=== PATIENT | female | born 1950 | race Caucasian/White ===

== ENCOUNTER 2017-02-11 09:51 | Outpatient (CLI) | payer MEDICARE, BC ==
--- NOTE | 2017-02-11 10:17 | XRAY Report ---
THREE VIEW LEFT ANKLE: 02/11/2017 CLINICAL INDICATION: Edema. FINDINGS: AP, lateral, and oblique views of the left ankle demonstrate no evidence of acute fracture or dislocation. Lateral soft tissue swelling is noted. No effusion is seen. IMPRESSION: LATERAL SOFT TISSUE SWELLING, BUT NO EVIDENCE OF FRACTURE. JOB #: [id number] EXT JOB #:[id number]
== END 2017-02-11 09:52 | disposition home or self-care (01) ==
LOC: DI 09:51
PROVIDERS: ATTEND Family Medicine
DX: M25.572 Pain in left ankle and joints of left foot (principal); R60.0 Localized edema

== ENCOUNTER 2017-04-22 22:59 | Emergency (ER) | payer MEDICARE, BC ==
[2017-04-22 23:24] LABS: BASOPHILS % (AUTO) 0.7 %; EOSINOPHILS # (AUTO) 0.1 10^3/uL (0.0-0.7); EOSINOPHILS % (AUTO) 2.1 %; HCT - HEMATOCRIT 38.4 % (37.0-47.0); HGB - HEMOGLOBIN 13.2 g/dL (12.0-16.0); LYMPHOCYTES # (AUTO) 1.8 10^3/uL (1.5-3.5); LYMPHOCYTES % (AUTO) 33.6 %; MEAN CORPUSCULAR HEMOGLOBIN 31.1 pg (27.0-31.0); MEAN CORPUSCULAR HGB CONC 34.3 g/dL (32.0-36.0); MEAN CORPUSCULAR VOLUME 90.5 fL (81.0-99.0); MEAN PLATELET VOLUME 8.3 fL (7.9-10.8); MONOCYTES # (AUTO) 0.5 10^3/uL (0.0-1.0); MONOCYTES % (AUTO) 8.5 %; NEUTROPHILS # (AUTO) 2.9 10^3/uL (1.5-6.6); NEUTROPHILS % (AUTO) 55.1 %; RED BLOOD COUNT 4.24 10^6/uL (4.20-5.40); RED CELL DISTRIBUTION WIDTH 13.3 % (12.0-15.0); UNCORRECTED WHITE BLOOD COUNT 5.3 x10^3/uL; WHITE BLOOD COUNT 5.3 x10^3/uL (4.8-10.8)
[2017-04-22 23:37] LABS: ALBUMIN/GLOBULIN RATIO 1.7 (1.0-2.2); BILIRUBIN,TOTAL 0.6 mg/dL (0.2-1.0); CALCIUM 9.6 mg/dL (8.5-10.3); CREATININE 0.9 mg/dL (0.4-1.0); TOTAL PROTEIN 7.3 g/dL (6.7-8.2)
--- NOTE | 2017-04-22 23:44 | ED Physician Documentation ---
PD HPI ABD PAIN - Stated complaint Stated Complaint: DIVERTICULTIS SYMPTONS - Chief complaint Chief Complaint: Abd Pain - History obtained from History obtained from: Patient, Family - History of Present Illness Timing - onset: Today Timing - details: Now resolved Associated symptoms: No: Fever, Nausea, Vomiting, Hematemesis, Diarrhea Recently seen: Clinic - Additional information Additional information: Patient is a 66 year old female with a history of diverticulitis who is coming to the emergency department for a resolution of her symptoms. Patient states that her doctor told her to come to the emergency department right away if the pain went away entirely. Patient states that she was able to eat soup today and her pain is gone so she came to the emergency department. Review of Systems Constitutional: denies: Fever, Chills Eyes: reports: Reviewed and negative Nose: denies: Rhinorrhea / runny nose, Congestion Throat: reports: Reviewed and negative Cardiac: denies: Chest pain / pressure, Palpitations Respiratory: denies: Cough GI: reports: Diarrhea. 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, Hysterectomy - Present Medications Home Medications: Ambulatory Orders Medication Instructions Recorded Confirmed Metoprolol Tartrate 2 tab PO DAILY 04/28/14 08/19/15 Rosuvastatin Calcium [Crestor] 0.5 tab PO DAILY 04/28/14 08/19/15 Valsartan [Diovan] 160 mg PO BID 04/28/14 08/19/15 Ciprofloxacin HCl [Cipro] 500 mg PO BID 04/22/17 04/22/17 Metronidazole [Flagyl] 500 mg PO BID 04/22/17 04/22/17 - Allergies Allergies/Adverse Reactions: Allergies Allergy/AdvReac Type Severity Reaction Status Date / Time codeine Allergy Nausea Verified 08/19/15 12:37 oxycodone [Oxycodone] Allergy Hives Verified 08/19/15 12:37 oxycodone HCl * Allergy Unknown Verified 08/19/15 12:37 [From OxyContin] Penicillins Allergy Unknown Verified 08/19/15 12:37 - Social History Does the pt smoke?: No Smoking Status: Never smoker Does the pt drink ETOH?: Yes Does the pt have substance abuse?: No - Immunizations Immunizations are current?: Yes PD ED PE NORMAL - Vitals Vital signs reviewed: Yes - General General: Alert and oriented X 3, No acute distress - HEENT HEENT: Atraumatic, PERRL, Moist mucous membranes - Neck Neck: No JVD - Cardiac Cardiac: RRR, No murmur - Respiratory Respiratory: No respiratory distress - Abdomen Abdomen: Normal bowel sounds, Soft, Non tender, Non distended - Derm Derm: Normal color, Warm and dry, No rash - Extremities Extremities: No deformity, No tenderness to palpate, No edema - Neuro Neuro: Alert and oriented X 3, No motor deficit, No sensory deficit, Normal speech - Psych Psych: Normal mood, Normal affect Results - Vitals Vitals: Vital Signs - 24 hr 04/22/17 04/22/17 23:04 23:48 Temperature 36.6 C Heart Rate 68 53 L Respiratory 16 16 Rate Blood Pressure 161/82 H 124/81 H O2 Saturation 96 98 Oxygen O2 Source Room air - Labs Labs: Laboratory Tests 04/22/17 04/22/17 04/22/17 23:17 23:17 23:17 WBC 5.3 RBC 4.24 Hgb 13.2 Hct 38.4 MCV 90.5 MCH 31.1 H MCHC 34.3 RDW 13.3 Plt Count 170 MPV 8.3 Neut # 2.9 Lymph # 1.8 Hemphill # 0.5 Eos # 0.1 Baso # 0.0 Absolute Nucleated RBC 0.00 Nucleated RBCs 0.0 Sodium 138 Potassium 3.0 L Chloride 103 Carbon Dioxide 25 Anion Gap 10.0 BUN 11 Creatinine 0.9 Estimated GFR (MDRD) 63 L Glucose 96 Lactic Acid 1.0 Calcium 9.6 Total Bilirubin 0.6 AST 26 ALT 19 Alkaline Phosphatase 40 L Total Protein 7.3 Albumin 4.6 Globulin 2.7 Albumin/Globulin Ratio 1.7 Lipase 28 PD MEDICAL DECISION MAKING - ED course Complexity details: reviewed old records, reviewed results, re-evaluated patient , considered differential, d/w patient, d/w family ED course: Patient was seen and examined at bedside. Patient was well appearing and in no distress. Patient's labs were within normal limits. Patient required no further work up and was stable for discharge with outpatient follow up. Departure - Departure Disposition: 01 Home, Self Care Clinical Impression: Diverticulitis of gastrointestinal tract Condition: Good Instructions: ED Diverticulitis Follow-Up: Gio Velazquez MD [Primary Care Provider] - As Needed Comments: Your diagnostics today were within normal limits. there was no sign of infection. your potassium was a little low so you will need to increase your potassium intake (bananas, kale, green leafy vegetables). You should finish you course of antibiotics and follow up wiht your doctor as needed. You may return to the emergency department at any time for new, worsening or uncontrollable symptoms. Discharge Date/Time: 04/22/17 23:51
[2017-04-22 23:49] VITALS: BP 124/81
== END 2017-04-22 23:51 | disposition home or self-care (01) ==
LOC: ED 22:59
DX: K57.92 Diverticulitis of intestine, part unspecified, without perforation or abscess without bleeding (principal); E87.6 Hypokalemia; I10 Essential (primary) hypertension
CPT/HCPCS: 36415; 80053; 83605; 83690; 85025; 99283

== ENCOUNTER 2017-05-19 12:44 | Outpatient (CLI) | payer MEDICARE, BC ==
[2017-05-19 13:27] LABS: BASOPHILS % (AUTO) 0.8 %; EOSINOPHILS # (AUTO) 0.1 10^3/uL (0.0-0.7); EOSINOPHILS % (AUTO) 3.2 %; HCT - HEMATOCRIT 39.4 % (37.0-47.0); HGB - HEMOGLOBIN 13.5 g/dL (12.0-16.0); LYMPHOCYTES # (AUTO) 1.5 10^3/uL (1.5-3.5); MEAN CORPUSCULAR HEMOGLOBIN 30.8 pg (27.0-31.0); MEAN CORPUSCULAR HGB CONC 34.2 g/dL (32.0-36.0); MEAN PLATELET VOLUME 8.7 fL (7.9-10.8); MONOCYTES # (AUTO) 0.3 10^3/uL (0.0-1.0); MONOCYTES % (AUTO) 7.5 %; NEUTROPHILS # (AUTO) 2.1 10^3/uL (1.5-6.6); NEUTROPHILS % (AUTO) 52.5 %; NUCLEATED RED BLOOD CELLS AUTO 0.1 /100WBC; RED BLOOD COUNT 4.38 10^6/uL (4.20-5.40); RED CELL DISTRIBUTION WIDTH 12.8 % (12.0-15.0); UNCORRECTED WHITE BLOOD COUNT 4.1 x10^3/uL; WHITE BLOOD COUNT 4.1 x10^3/uL (4.8-10.8)
[2017-05-19 13:48] LABS: ALBUMIN/GLOBULIN RATIO 1.7 (1.0-2.2); BILIRUBIN,TOTAL 0.9 mg/dL (0.2-1.0); CALCIUM 9.4 mg/dL (8.5-10.3); CREATININE 0.7 mg/dL (0.4-1.0); POTASSIUM 3.7 mmol/L (3.5-5.0); TOTAL PROTEIN 6.8 g/dL (6.7-8.2)
== END 2017-05-19 12:45 | disposition home or self-care (01) ==
LOC: LAB 12:44
PROVIDERS: ATTEND Podiatrist Foot & Ankle Surgery
DX: Z01.812 Encounter for preprocedural laboratory examination (principal); Z01.810 Encounter for preprocedural cardiovascular examination
CPT/HCPCS: 36415; 80053; 85025; 93005

== ENCOUNTER 2018-08-01 11:35 | Emergency (ER) | payer MEDICARE, BC ==
[2018-08-01 11:50] VITALS: BP 150/90
--- NOTE | 2018-08-01 12:54 | ED Physician Documentation ---
PD HPI URI - Stated complaint Stated Complaint: COLD,HEAD ACHE - Chief complaint Chief Complaint: Heent - History obtained from History obtained from: Patient - History of Present Illness Timing - onset: How many weeks ago (1) Timing duration: Weeks (1) Timing details: Gradual onset, Still present Associated symptoms: Fever, Nasal congestion, Sinus pain (for 1-2 days), Sore throat, NVD. No: Ear pain, Dry cough, Chest pain, Dyspnea Contributing factors: No: Sick contact, Immunocompromised Worsened by: Activity Recently seen: Not recently seen Review of Systems Constitutional: reports: Fever, Chills, Myalgias Nose: reports: Congestion, Sinus pressure / pain. 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, Hysterectomy - Present Medications Home Medications: Ambulatory Orders Medication Instructions Recorded Confirmed Metoprolol Tartrate 2 tab PO DAILY 04/28/14 08/19/15 Rosuvastatin Calcium [Crestor] 0.5 tab PO DAILY 04/28/14 08/19/15 Valsartan [Diovan] 160 mg PO BID 04/28/14 08/19/15 Ciprofloxacin HCl [Cipro] 500 mg PO BID 04/22/17 04/22/17 Metronidazole [Flagyl] 500 mg PO BID 04/22/17 04/22/17 Benzonatate [Tessalon Perle] 100 - 200 mg PO TID PRN #30 capsule 08/01/18 Cetirizine [ZyrTEC] 10 mg PO DAILY #15 tablet 08/01/18 Dexamethasone [Decadron] 4 mg PO DAILY #5 tablet 08/01/18 Doxycycline Hyclate 100 mg PO BID #15 capsule 08/01/18 Mupirocin 1 applic TP TID #15 g 08/01/18 - Allergies Allergies/Adverse Reactions: Allergies Allergy/AdvReac Type Severity Reaction Status Date / Time codeine Allergy Nausea Verified 08/19/15 12:37 oxycodone [Oxycodone] Allergy Hives Verified 08/19/15 12:37 oxycodone HCl * Allergy Unknown Verified 08/19/15 12:37 [From OxyContin] Penicillins Allergy Unknown Verified 08/19/15 12:37 - Social History Does the pt smoke?: No Smoking Status: Never smoker Does the pt drink ETOH?: Yes Does the pt have substance abuse?: No - Immunizations Immunizations are current?: Yes PD ED PE NORMAL - Vitals Vital signs reviewed: Yes - General General: Alert and oriented X 3, Well developed/nourished - HEENT HEENT: Ears normal, Pharynx benign, Other (frontal sinus tenderness to percussion) - Neck Neck: Supple, no meningeal sign, No adenopathy - Cardiac Cardiac: RRR, No murmur - Respiratory Respiratory: Clear bilaterally - Abdomen Abdomen: Soft, Non tender - Back Back: No CVA TTP - Derm Derm: Normal color, Warm and dry - Neuro Neuro: Alert and oriented X 3, No motor deficit, Normal speech Results - Vitals Vitals: Vital Signs - 24 hr 08/01/18 11:48 Temperature 36.6 C Heart Rate 73 Respiratory 16 Rate Blood Pressure 150/90 H O2 Saturation 99 Oxygen O2 Source Room air PD MEDICAL DECISION MAKING - ED course Complexity details: considered differential (sounds like URI with likely some sinusitis secondarily. ), d/w patient Departure - Departure Disposition: Home, Self Care Clinical Impression: Upper respiratory infection Qualifiers: URI type: unspecified URI Qualified Code(s): J06.9 - Acute upper respiratory infection, unspecified Sinusitis, acute Qualifiers: Sinusitis location: pansinusitis Recurrence: non-recurrent Qualified Code(s): J01.40 - Acute pansinusitis, unspecified Condition: Stable Record reviewed to determine appropriate education?: Yes Instructions: ED Sinusitis Abx Tx Follow-Up: Gio Velazquez MD [Primary Care Provider] - Prescriptions: Benzonatate [Tessalon Perle] 100 - 200 mg PO TID PRN #30 capsule PRN Reason: Cough Cetirizine [ZyrTEC] 10 mg PO DAILY #15 tablet Dexamethasone [Decadron] 4 mg PO DAILY #5 tablet Doxycycline Hyclate 100 mg PO BID #15 capsule Mupirocin 1 applic TP TID #15 g Comments: Drink lots of fluids. You can try some saline nose spray to moisturize the nasal passages. Use mupirocin antibiotic ointment into the nasal passage and the sores around the opening 2-3 times a day for concern of bacterial infection at those spots. Doxycycline oral antibiotic for the sinuses and nose as well. Decadron steroid anti-inflammatory to help reduce inflammation throughout and that should help with symptoms. Cetirizine antihistamine daily for the next week or 2. Drink lots of fluids and use Tylenol if needed for pains. Use Tessalon if needed for cough. Discharge Date/Time: 08/01/18 13:59
== END 2018-08-01 13:59 | disposition home or self-care (01) ==
LOC: ED 11:35
DX: J01.40 Acute pansinusitis, unspecified (principal); J06.9 Acute upper respiratory infection, unspecified; J45.909 Unspecified asthma, uncomplicated; I10 Essential (primary) hypertension
CPT/HCPCS: 99283

== ENCOUNTER 2020-03-07 14:12 | Outpatient (CLI) | payer MEDICARE, BC ==
--- NOTE | 2020-03-07 16:33 | XRAY Report ---
PROCEDURE: Lumbar Spine 2 View INDICATIONS: LOW BACK PAIN TECHNIQUE: 2 views of the lumbar spine were acquired. COMPARISON: None. FINDINGS: Bones: There are 5 nonrib-bearing lumbar-type vertebral bodies. Exaggerated lumbar lordosis. Otherwis e normal height and alignment. Disc height loss from L3 L4-L5 S1 with associated degenerative endplat e changes and facet hypertrophy. Soft tissues: Overlying bowel gas pattern is normal. No suspicious soft tissue calcifications. Cho lecystectomy clips. IMPRESSION: Degenerative changes in the lower lumbar spine. Reviewed by: Tomasz Bello MD on 03/07/2020 4:32 PM PDT Approved by: Tomasz Bello MD on 03/07/2020 4:32 PM PDT Station ID: [id number]
== END 2020-03-07 14:13 | disposition home or self-care (01) ==
LOC: DI.N 14:12 → DI.S 14:13
PROVIDERS: ATTEND Nurse Practitioner Family
DX: M47.816 Spondylosis without myelopathy or radiculopathy, lumbar region (principal)
CPT/HCPCS: 72100

== ENCOUNTER 2021-10-28 13:47 | Emergency (ER) | payer MEDICARE, BC ==
[2021-10-28 14:11] VITALS: BP 152/82
--- NOTE | 2021-10-28 14:33 | ED Physician Documentation ---
PD HPI Fall - Stated complaint Stated Complaint: RT SHOULDER PX - Chief complaint Chief Complaint: Trauma Ext - History obtained from History obtained from: Patient - History of Present Illness Mechanism of injury: Other (pulled over by dog) Fall distance: Standing position Where injury occurred: Home Timing - onset: Today Injury(ies) location: Right Upper Extremity, Other (right pelvis) Quality of pain: Pain Associated symptoms: No: LOC, AMS, Amnesia, Neck pain, Weakness, Paresthesias, Dyspnea, Nausea / vomiting, Hematemesis, Abdominal distension Symptoms improve with: Rest, Position Worsens with: Movement, Palpation Contributing factors: No: Anticoagulated Similar symptoms before: Has not had sx before Recently seen: Not recently seen - Additional information Additional information: 71-year-old female with a history of hypertension was sitting with her taking the dog for a walk with the dog bolted after a squirrel and pulled her straight onto her right shoulder. She fell onto her right hip as well she is complaining of pain and swelling to the right shoulder with reduced range of motion and a pain to her pelvis medially. She states that this is on the right side and has been increasing in pain as she sits here in the emergency department. Review of Systems Constitutional: denies: Fever Respiratory: denies: Cough GI: denies: Vomiting, Diarrhea Skin: denies: Rash Musculoskeletal: reports: Extremity pain, Joint pain, Extremity swelling, Joint swelling. 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, Hysterectomy - Present Medications Home Medications: Ambulatory Orders Medication Instructions Recorded Confirmed Metoprolol Tartrate 2 tab PO DAILY 04/28/14 08/19/15 Rosuvastatin Calcium [Crestor] 0.5 tab PO DAILY 04/28/14 08/19/15 Valsartan [Diovan] 160 mg PO BID 04/28/14 08/19/15 Ciprofloxacin HCl [Cipro] 500 mg PO BID 04/22/17 04/22/17 metroNIDAZOLE [Flagyl] 500 mg PO BID 04/22/17 04/22/17 Benzonatate [Tessalon Perle] 100 - 200 mg PO TID PRN #30 capsule 08/01/18 Cetirizine [ZyrTEC] 10 mg PO DAILY #15 tablet 08/01/18 Doxycycline Hyclate 100 mg PO BID #15 capsule 08/01/18 Mupirocin 1 applic TP TID #15 g 08/01/18 dexAMETHasone [Decadron] 4 mg PO DAILY #5 tablet 08/01/18 HYDROcod/ACETAM 5/325 [[place] 5/325] 1 - 2 tablet PO Q6H PRN #14 tablet 10/28/21 Ondansetron Odt [Zofran] 4 mg TL Q6H PRN #10 tablet 10/28/21 - Allergies Allergies/Adverse Reactions: Allergies Allergy/AdvReac Type Severity Reaction Status Date / Time codeine Allergy Nausea Verified 10/28/21 14:11 oxycodone [Oxycodone] Allergy Hives Verified 10/28/21 14:11 oxycodone HCl * Allergy Unknown Verified 10/28/21 14:11 [From OxyContin] Penicillins Allergy Unknown Verified 10/28/21 14:11 Sulfa (Sulfonamide Allergy Hives Verified 10/28/21 14:11 Antibiotics) - Social History Does the pt smoke?: No Smoking Status: Never smoker Does the pt drink ETOH?: Yes Does the pt have substance abuse?: No - Immunizations Immunizations are current?: Yes PD ED PE NORMAL - Vitals Vital signs reviewed: Yes (hypertensive) - General General: Alert and oriented X 3, No acute distress, Well developed/nourished - HEENT HEENT: Atraumatic, PERRL, EOMI - Respiratory Respiratory: No respiratory distress - Derm Derm: Normal color, Warm and dry, No rash - Extremities Extremities: Other (There is swelling and deformity to the proximal right humerus consistent with a fracture. The patient has fair range of motion at the elbow with referred pain to the proximal humerus. She is able supinate pronate and flex and extend the wrist as well. Distal neurovascular components are intact. 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 Humeral head lucencies are present not well seen on prior exam. While these could be degenerative, they are considered indeterminate. Further evaluation with bone scan or MRI is recommended.), EMP read indepedently (seems like it may be an impacted fracture. ), See rad report hip/pelvis Radiology: Prelim report reviewed (Impression: No visualized acute fracture or dislocation. However, occult injury cannot be excluded. Recommend short interval imaging follow-up in 7 to 10 days as clinically indicated for additional evaluation.), EMP read indepedently, See rad report PD MEDICAL DECISION MAKING - ED course Complexity details: reviewed old records, reviewed results, re-evaluated patient, considered differential, d/w patient ED course: 71-year-old female pulled over by her dog is landed on her right shoulder and her x-rays to me appear to show a impacted humeral neck fracture. This is not called by the radiologist. She is placed into a sling with marked improvement. We will provide some pain medication and nausea medicine and she will follow up with her orthopedic doctor in [place]. Departure - Departure Disposition: 01 Home, Self Care Clinical Impression: Proximal humeral fracture Qualifiers: Encounter type: initial encounter Fracture type: closed Fracture morphology: other fracture Fracture alignment: nondisplaced Laterality: right Qualified Code(s): S42.294A - Other nondisplaced fracture of upper end of right humerus, initial encounter for closed fracture Contusion of right hip Qualifiers: Encounter type: initial encounter Qualified Code(s): S70.01XA - Contusion of right hip, initial encounter Condition: Stable Instructions: ED Contusion Hip, ED Fx Shoulder Follow-Up: VIKTOR SAMUEL MD [Primary Care Provider] - MARVIN HOLLEY [Physician No Access] - Prescriptions: HYDROcod/ACETAM 5/325 [[place] 5/325] 1 - 2 tablet PO Q6H PRN #14 tablet PRN Reason: Pain Ondansetron Odt [Zofran] 4 mg TL Q6H PRN #10 tablet PRN Reason: Nausea / Vomiting Comments: Jenna, today it looks like you have an impacted fracture of your right humeral neck. This was not an impressive view on the x-ray and the radiologist is not convinced there is a fracture. The alignment is excellent and this would indicate improved healing. Wear the sling and follow up with Dr. Holley regarding physical therapy to regain range of motion. You will need to take your arm out of the sling 2-3 times per day to do a gentle range of motion to prevent a frozen shoulder. There does not appear to be a fracture to the hip or pelvis. We have prescribed some pain medication for you and it has been e- scribed to [facility] in [place].
--- NOTE | 2021-10-28 15:24 | XRAY Report ---
PROCEDURE: Hip w/Pelvis 2-3V RT INDICATIONS: fall medial hip/pelvis pain TECHNIQUE: AP pelvis with lateral view(s) of the right hip(s). COMPARISON: None. FINDINGS: Bones: No fractures or dislocations. Pelvic ring appears intact. No suspicious bony lesions. Soft tissues: The visualized bowel gas pattern is normal. No suspicious soft tissue calcifications. IMPRESSION: No visualized acute fracture or dislocation. However, occult injury cannot be excluded. Recommend short interval imaging follow-up in 7-10 days as clinically indicated for additional evalua tion. Reviewed by: Halle Marroquin MD on 10/28/2021 3:22 PM PDT Approved by: Halle Marroquin MD on 10/28/2021 3:22 PM PDT Station ID: [id number]
--- NOTE | 2021-10-28 15:27 | XRAY Report ---
PROCEDURE: Shoulder 3 View RT INDICATIONS: proximal humerus injury TECHNIQUE: 3 views of the shoulder were acquired. COMPARISON: None. FINDINGS: Bones: No fractures or dislocations. Areas of lucency are noted overlying the right humeral head. Th ere are not well seen on prior exam although no dedicated shoulder view is available for comparison. Prominent acromioclavicular degenerative narrowing is present. Visualized ribs appear intact. Soft tissues: No suspicious soft tissue calcifications. IMPRESSION: Acromioclavicular degenerative narrowing. Humeral head lucencies are present not well seen on prior e xam. While these could be degenerative, they're considered indeterminate. Further evaluation with bon e scan or MRI is recommended. Reviewed by: Halle Marroquin MD on 10/28/2021 3:25 PM PDT Approved by: Halle Marroquin MD on 10/28/2021 3:25 PM PDT Station ID: [id number]
[2021-10-28] MEDS ORDERED: KETOROLAC 60 MG/2 ML VIAL IM STA (16:00)
== END 2021-10-28 16:14 | disposition home or self-care (01) ==
LOC: ED 13:47
DX: S42.201A Unspecified fracture of upper end of right humerus, initial encounter for closed fracture (principal); S70.01XA Contusion of right hip, initial encounter; X50.0XXA Overexertion from strenuous movement or load, initial encounter; X50.9XXA Other and unspecified overexertion or strenuous movements or postures, initial encounter; Y93.K1 Activity, walking an animal; Y92.89 Other specified places as the place of occurrence of the external cause
CPT/HCPCS: 99283; 99284

== ENCOUNTER 2021-12-31 07:43 | Outpatient (CLI) | payer MEDICARE, BC ==
[2021-12-31 14:13] LABS: HCT - HEMATOCRIT 41.3 % (37.0-47.0); HGB - HEMOGLOBIN 13.8 g/dL (12.0-16.0); MEAN CORPUSCULAR HEMOGLOBIN 31.4 pg (27.0-31.0); MEAN CORPUSCULAR HGB CONC 33.4 g/dL (32.0-36.0); MEAN CORPUSCULAR VOLUME 93.9 fL (81.0-99.0); MEAN PLATELET VOLUME 11.1 fL (7.9-10.8); RED BLOOD COUNT 4.4 10^6/uL (4.20-5.40); RED CELL DISTRIBUTION WIDTH 12.3 % (12.0-15.0); WHITE BLOOD COUNT 4.7 x10^3/uL (4.8-10.8)
[2021-12-31 15:10] LABS: ALBUMIN/GLOBULIN RATIO 1.5 (1.0-2.2); ALKALINE PHOSPHATASE 58 IU/L (42-121); ALT ALANINE AMINOTRANSFERASE 15 IU/L (10-60); AST ASPARTATE AMINOTRANSFERASE 20 IU/L (10-42); BILIRUBIN,TOTAL 0.7 mg/dL (0.2-1.0); BUN - BLOOD UREA NITROGEN 15 mg/dL (6-20); CALCIUM 9.1 mg/dL (8.5-10.3); CARBON DIOXIDE - CO2 27 mmol/L (21-32); CHLORIDE 102 mmol/L (101-111); CHOL/HDL RATIO 3.3 (<4.4); CHOLESTEROL 200 mg/dL; CREATININE 0.8 mg/dL (0.4-1.0); GFR - MDRD 71 (>89); GLUCOSE 100 mg/dL (70-100); HDL CHOLESTEROL 60 mg/dL; LDL CHOLESTEROL,CALCULATED 118 mg/dL; POTASSIUM 4.1 mmol/L (3.5-5.0); SODIUM 137 mmol/L (135-145); TOTAL PROTEIN 6.6 g/dL (6.7-8.2); TRIGLYCERIDES 111 mg/dL; VLDL CHOLESTEROL 22 mg/dL
== END 2021-12-31 07:44 | disposition home or self-care (01) ==
LOC: LAB.S 07:43
PROVIDERS: ATTEND Internal Medicine Cardiovascular Disease
DX: E78.2 Mixed hyperlipidemia (principal)
CPT/HCPCS: 36415; 80053; 80061; 83721; 85027

== ENCOUNTER 2022-04-22 08:00 | Outpatient (CLI) | payer MEDICARE, BC | END 2022-04-22 23:59 | disposition home or self-care (01) | LOC: LAB.S 08:00 | PROVIDERS: ATTEND Physician Assistant Medical | DX: J02.9 Acute pharyngitis, unspecified (principal); H92.03 Otalgia, bilateral | CPT/HCPCS: 87070 ==